=== PATIENT | female | born 1955 | race Caucasian/White ===

== ENCOUNTER 2022-02-04 17:39 | Emergency (ER) | payer OTHER, SELFPAY ==
[2022-02-04] VITALS (18 sets, daily range): BP systolic 91–155; BP diastolic 51–89; PULSE 62–86; RESP 12–26; TEMP 36.4; O2SAT 91–98
--- NOTE | ~2022-02-04 | CT_ITS ---
EXAMINATION: CTA chest PE protocol DATE: 02/04/2022 21:28 INDICATION: SOB, recent cancer diagnosis, +covid TECHNIQUE: Computed tomography angiography (CTA) of the chest was performed with 100 mL Omnipaque-350 intravenous contrast timed to evaluate the pulmonary arteries. Coronal maximum intensity projection 3D-reconstructions were created by the technologist. The dose-length product (DLP) was 377.63 mGy-cm. Automated exposure control and iterative reconstruction technique were employed. COMPARISON: 04/09/2019. X-ray chest, 02/04/2022. FINDINGS: Lung parenchyma and airways: Clear. Calcified granuloma or hamartoma in the superior segment of the l eft lower lobe. Dependent atelectasis/scar. Pleura: Unremarkable. Thoracic inlet, axillae and chest wall: Status post left mastectomy. Thoracic aorta: Normal. Mediastinum: Mild dilation of the central pulmonary arteries as can be seen with pulmonary arterial h ypertension. Heart and pericardium: Mild cardiomegaly. No pericardial effusion. Coronary artery calcifications: Absent. Upper abdomen: No significant finding. Bones: Numerous subacute and chronic right rib fractures. Mild anterior wedge deformity at multiple l evels in the thoracic spine. Innumerable lucent lesions in the spine. Pulmonary arteries: Study quality: Adequate. No pulmonary emboli detected. IMPRESSION: No CT evidence of acute pulmonary embolus. Chronic and incidental findings detailed above. Reviewed, dictated and finalized at location K. IMPRESSION: No CT evidence of acute pulmonary embolus. Chronic and incidental findings deta iled above.
--- NOTE | ~2022-02-04 | XR_ITS ---
EXAMINATION: XR chest 2V Exam Date/Time: 02/04/2022 18:05 CDT HISTORY: COVID with SOB. NO CARDIAC HX. Comparison: 04/09/2019. RESULT: Lines, tubes, and devices: None. Lungs and pleura: Hazy opacities in the right lower lung likely related to rotation and summation ar tifact from soft tissues. Streaky right basilar opacities, commonly attributed to atelectasis. Cardiomediastinal silhouette: Stable. Other: No acute osseous or upper abdominal finding. Status post left mastectomy. IMPRESSION: No acute cardiopulmonary process. Reviewed, dictated and finalized at location K.
--- NOTE | 2022-02-04 17:49 | ECG_ITS ---
Measurements Intervals [place] Rate: 65 P: 60 MT: 168 QRS: -29 QRSD: 86 T: 8 QT: 384 QTc: 402 Interpretive Statements SINUS RHYTHM POSSIBLE LEFT ATRIAL ENLARGEMENT [-0.1mV P WAVE IN V1/V2] POSSIBLE RIGHT VENTRICULAR CONDUCTION DELAY [RSR (QR) IN V1/V2] POSSIBLE ANTERIOR MYOCARDIAL INFARCTION , OF INDETERMINATE AGE [30 ms Q WAVE IN V3/V4, OR R < 0.2 mV IN V4] NONSPECIFIC T-WAVE ABNORMALITY COMPARED TO ECG 04/09/2019 22:07:17 NO SIGNIFICANT CHANGES Electronically Signed On 02-05-2022 9:26:23 CDT by Giovanni Orlando M.D.
[2022-02-04 18:02] LABS: Basophils Percent Auto 0.6 % (0.2-1.2); Eosinophils Absolute Auto 0.1 K/mm3 (0-0.3); Eosinophils Percent Auto 0.9 % (0-4.4); Hematocrit 39.5 % (37.0-47.0); Hemoglobin 12.7 g/dL (12.0-15.0); Immature Granulocyte Absolute 0.05 K/mm3 (0.00-0.031); Immature Granulocyte Percent A 0.9 % (0-0.5); Lymphocytes Absolute Auto 0.88 K/mm3 (0.9-3.2); Lymphocytes Percent Auto 16.5 % (18.3-44.2); Mean Corpuscular HGB Conc 32.2 g/dl (32-36); Mean Corpuscular Volume 96.3 fl (80-100); Mean Platelet Volume 9.4 fl (7.4-10.4); Monocytes Absolute Auto 0.5 K/mm3 (0.1-0.6); Monocytes Percent Auto 8.6 % (2.6-8.5); Neutrophils Absolute Auto 3.9 K/mm3 (1.3-6.7); Neutrophils Percent Auto 72.5 % (45.5-73.1); Platelet Count Result 271 k/mm3 (150-375); Red Cell Distribution Width 13.9 % (11.5-14.5); White Blood Count 5.3 K/mm3 (4.5-10.0)
[2022-02-04 18:17] LABS: Alanine Aminotransferase 21 U/L (6-35); Alkaline Phosphatase 248 U/L (38-126); Anion Gap 11 mmol/L (8-16); Aspartate Amino Transferase 46 U/L (14-36); Bilirubin,Total 0.4 mg/dL (0.2-1.3); Blood Urea Nitrogen 23 mg/dL (7-17); Calcium 9.4 mg/dL (8.4-10.2); Carbon Dioxide 26 mmol/L (22-30); Chloride 105 mmol/L (98-107); Estimated CRCL calculation 57 ml/min; Estimated Glomerular Filt Rate 56; Glucose 121 mg/dL (65-110); Potassium 4.2 mmol/L (3.4-5.0); Sodium 142 mmol/L (137-145)
--- NOTE | 2022-02-04 19:45 | ED.SOB ---
HPI - SOB/Dyspnea General Chief Complaint: Shortness of Breath/Dyspnea Stated Complaint: COVID + 01/26, SOB, metastic cancer Time Seen by Provider: 02/04/22 18:59 History of Present Illness HPI Narrative: Patient is a 66-year-old female with recent diagnosis of metastatic cancer of unknown origin presenting with shortness of breath. Patient states that she tested positive for COVID approximately a week ago. States that she has been recovering at home. She tested herself again yesterday and was still positive. Today, she felt more short of breath even while sitting. States that she was anxious that something more serious was going on. She denies chest pain, lightheadedness, fevers, abdominal pain, nausea or vomiting, diarrhea, leg swelling. Patient states that she is on a lot of new pain medications due to mets in her spine. Related Data Home Medications Medication Instructions Recorded Confirmed folic acid 1 mg tablet 1 mg PO DAILY 03/21/21 10/26/21 levothyroxine 175 mcg capsule 175 mcg PO DAILY 03/21/21 10/26/21 ursodiol 300 mg capsule 300 mg PO TID 03/21/21 10/26/21 methotrexate 2.5 mg/mL oral 5 mg PO WEEKLY 08/01/21 10/26/21 solution Allergies Allergy/AdvReac Type Severity Reaction Status Date / Time No Known Allergies Allergy Verified 10/26/21 07:51 Review of Systems Review of Systems: All systems reviewed & are unremarkable except as noted in HPI and below PMFSH Past Medical History Medical History Anxiety Anxiety and depression BMI 33.0-33.9,adult Chest tightness Depression History of breast cancer History of osteomyelitis Left 3rd toe Hypothyroid Screen for colon cancer Screening for lipid disorders Surgical History Surgical History History of mastectomy No pertinent past surgical history Family History Family History Sibling Family history of hepatitis Family history of malignant neoplasm, Onset Age: 58 Father Family history of lung cancer, Onset Age: 69 Mother Family history of congestive heart failure Social History Social History Smoking status: Never smoker Second hand tobacco smoke exposure: No Alcohol intake: never Substance use: former Substance use type: crack/cocaine Gender identity (if verbalized by the patient): Female Exam Narrative: GENERAL: Well-appearing, well-nourished, and in no acute distress. HEAD: Normocephalic, atraumatic. EYES: PERRLA and EOMI. ENT: Nares clear, no rhinorrhea or epistaxis. Mucous membranes moist. NECK: Supple. CHEST: Clear to auscultation. No respiratory distress. HEART: Regular rate and rhythm. No murmur heard. Normal peripheral pulses. ABDOMEN: Soft, nontender, nondistended, normal active bowel sounds. EXTREMITIES: Normal range of motion. No edema. SKIN: Warm, dry, no rash. NEURO: No focal deficits. Alert and oriented x3. PSYCH: Normal mood and affect. Course Course Emergency Course: Patient is a 66-year-old female presenting with shortness of breath in the setting of COVID infection. Vitals are within normal limits. Patient is nontoxic and in no acute distress. Exam is unremarkable. EKG per my interpretation shows normal sinus rhythm, left axis deviation, no ST elevations or depressions. Blood work is unremarkable. Troponin is undetectable. CTA shows no PE. There is evidence of metastatic disease which patient already knows about. On reevaluation, the patient states that she feels better. Discussed the reassuring work-up. Recommended she follow-up with her PCP and oncologist. Strict return precautions given. Patient discharged in stable condition. Vital Signs Vital signs: Vital Signs Temperature 97.5 F L 02/04/22 17:46 Pulse Rate 73 02/04/22 17:46 Respiratory Rate 18 02/04
[2022-02-04 20:37] LABS: Troponin I < 0.012 ng/mL (0.000-0.034)
== END 2022-02-04 22:42 | disposition home or self-care (01) ==
PROVIDERS: Emergency Medicine; Emergency Provider Emergency Medicine; PCP Family Medicine
DX: U07.1 COVID-19 (principal); R06.02 Shortness of breath; C79.9 Secondary malignant neoplasm of unspecified site; E03.9 Hypothyroidism, unspecified; Z85.3 Personal history of malignant neoplasm of breast; Z90.10 Acquired absence of unspecified breast and nipple; R94.31 Abnormal electrocardiogram [ECG] [EKG]
CPT/HCPCS: 36415; 71046; 71275; 80053; 84484; 85025; 93005; 99284; Q9967

== ENCOUNTER 2023-04-05 16:28 | Emergency (ER) | payer MEDICARE, OTHER, SELFPAY ==
--- NOTE | 2023-04-05 16:42 | ED.ANIMALBIT ---
HPI - Animal Bite General Chief Complaint: Animal Bite Stated Complaint: dog bite r arm Time Seen by Provider: 04/05/23 17:11 Source: patient and RN notes reviewed Mode of arrival: ambulatory Limitations: no limitations History of Present Illness HPI narrative: 67-year-old female presents with concern for dog bite to her right forearm. Reports it was her dog bit her, it is up-to-date on vaccinations. She is currently undergoing chemotherapy. She reports to puncture wounds. MD complaint: animal bite Related Data Home Medications Medication Instructions Recorded Confirmed oxycodone myristate 9 mg capsule 9 mg PO BID 02/15/22 04/05/23 sprinkle extended release 12 hr(DON'T CRUSH) (Xtampza ER) lidocaine-prilocaine 2.5 %-2.5 % 1 g topical ONCE 06/18/22 04/05/23 topical cream ursodiol 300 mg capsule 600 mg PO BID 06/18/22 04/05/23 oxycodone 5 mg tablet 5 mg PO DAILY 04/05/23 04/05/23 zolpidem 5 mg tablet 5 mg PO DAILY 04/05/23 04/05/23 Allergies Allergy/AdvReac Type Severity Reaction Status Date / Time No Known Allergies Allergy Verified 04/05/23 16:45 Review of Systems Review of Systems: CONSTITUTIONAL: Denies malaise, chills, sweats, or fever. EYES: Denies redness, or discharge. ENT: Denies rhinorrhea, congestion, swollen lips, swollen tongue CARDIOVASCULAR: Denies chest pain, palpitations, or edema. RESPIRATORY: Denies cough or dyspnea. GASTROINTESTINAL: Denies abdominal pain, nausea, vomiting SKIN: Reports dog bite to the right forearm MUSCULOSKELETAL: Denies joint pain or myalgia. NEUROLOGIC: Denies headache. All systems reviewed & are unremarkable except as noted in HPI and below PMFSH Past Medical History Medical History (Updated 04/05/23 @ 17:16 by [place] Howard NP) Adult BMI 31.0-31.9 kg/sq m Anemia Anxiety Anxiety and depression BMI (body mass index) 20.0-29.9 BMI 28.0-28.9,adult BMI 33.0-33.9,adult Cancer of left breast, stage 4 Chest tightness Depression History of breast cancer History of osteomyelitis Left 3rd toe Hypothyroid Metastasis to spinal column Overweight with body mass index (BMI) of 28 to 28.9 in adult Port-A-Cath in place Screen for colon cancer Screening for lipid disorders Surgical History Surgical History History of mastectomy No pertinent past surgical history Family History Family History Sibling Family history of hepatitis Family history of malignant neoplasm, Onset Age: 58 Drug overdose Father Family history of lung cancer, Onset Age: 69 Tobacco abuse Mother Family history of congestive heart failure Heart disease Sibling No problems noted. 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 There is no relevant family history pertinent to the presenting complaint Exam Narrative: GENERAL: Well-appearing, well-nourished, and in no acute distress. HEAD: Normocephalic, atraumatic. EYES: PERRLA, conjunctivae clear, and EOMI. ENT: Mucous membranes moist. Oropharynx without edema, erythema or lesions. NECK: S
[2023-04-05 16:48] VITALS: BP 112/68; PULSE 83; RESP 16; TEMP 36.6; O2SAT 98
[2023-04-05 16:51] VITALS: BP 112/68; PULSE 83; RESP 16; TEMP 36.6; O2SAT 98
== END 2023-04-05 17:22 | disposition home or self-care (01) ==
PROVIDERS: Emergency Provider Nurse Practitioner; PCP Family Medicine
DX: S51.831A Puncture wound without foreign body of right forearm, initial encounter (principal); W54.0XXA Bitten by dog, initial encounter; C79.51 Secondary malignant neoplasm of bone; Z85.3 Personal history of malignant neoplasm of breast; Z87.891 Personal history of nicotine dependence; E03.9 Hypothyroidism, unspecified; F41.9 Anxiety disorder, unspecified; F32.A Depression, unspecified
CPT/HCPCS: 99213; G0463

== ENCOUNTER 2023-11-23 09:02 | Emergency (ER) | payer MEDICARE, OTHER, SELFPAY ==
[2023-11-23] VITALS (9 sets, daily range): BP systolic 115–136; BP diastolic 49–76; PULSE 70–78; RESP 12–19; TEMP 36.6–36.7; O2SAT 96–99
--- NOTE | ~2023-11-23 | XR_ITS ---
EXAMINATION: XR chest 2V DATE: 11/23/2023 09:44 INDICATION: Shortness of breath. Metastatic breast cancer. TECHNIQUE: Frontal and lateral views of the chest were obtained. COMPARISON: Chest 2 views 02/04/2022, chest CT 02/04/2022 FINDINGS: There is no pneumonia, pleural effusion, or pneumothorax. The heart size is normal. There a re multiple old right rib fractures. There is a widespread mixed lytic and sclerotic pattern in the s pine. There is mild chronic height loss of multiple vertebral bodies. IMPRESSION: 1. Widespread osseous metastatic disease. Reviewed, dictated and finalized at location A.
--- NOTE | 2023-11-23 09:27 | ECG_ITS ---
Test Date: 2023-11-23 10:07:28 Measurements Intervals [place] Rate: 70 P: 11 CT: 154 QRS: -14 QRSD: 94 T: -1 QT: 405 QTc: 437 Interpretive Statements SINUS RHYTHM POOR R-WAVE PROGRESSION BORDERLINE ECG No previous ECG available for comparison Electronically Signed On 11-24-2023 08:48:05 CDT by Levy High M.D.
--- NOTE | 2023-11-23 09:31 | ED.SOB ---
HPI - SOB/Dyspnea General Chief Complaint: Shortness of Breath/Dyspnea Stated Complaint: SOB Time Seen by Provider: 11/23/23 09:04 History of Present Illness HPI Narrative: Patient is a 68-year-old female who presents ER with reports of shortness of breath. Woke up this morning felt more short of breath than typical. No runny nose or sore throat or productive cough. No fevers chills. No pain with deep breath. No hemoptysis. Has history of metastatic breast cancer to the bones. No urinary symptoms or abdominal symptoms. Feels like she gets a little anxious when she is short of breath. Related Data Home Medications Medication Instructions Recorded Confirmed oxycodone myristate 9 mg capsule 9 mg PO BID 02/15/22 06/05/23 sprinkle extended release 12 hr(DON'T CRUSH) (Xtampza ER) lidocaine-prilocaine 2.5 %-2.5 % 1 g topical ONCE 06/18/22 06/05/23 topical cream ursodiol 300 mg capsule 600 mg PO BID 06/18/22 06/05/23 oxycodone 5 mg tablet 5 mg PO DAILY 04/05/23 06/05/23 zolpidem 5 mg tablet 5 mg PO DAILY 04/05/23 06/05/23 morphine 30 mg tablet,extended 30 mg PO Q12H 06/05/23 06/05/23 release Allergies Allergy/AdvReac Type Severity Reaction Status Date / Time No Known Allergies Allergy Verified 11/23/23 09:02 Review of Systems Review of Systems: All systems reviewed & are unremarkable except as noted in HPI and below Constitutional: Constitutional: Reports no additional constitutional complaints ENT: Reports system reviewed and no additional complaints, except as documented Cardiovascular: Cardiovascular: Reports no additional cardiovascular complaints Respiratory: Respiratory: Denies chest congestion, Denies cough, Reports dyspnea and Denies wheezing Gastrointestinal: Gastrointestinal: Reports no additional gastrointestinal complaints [facility] Past Medical History Medical History Adult BMI 31.0-31.9 kg/sq m Anemia Anxiety Anxiety and depression BMI (body mass index) 20.0-29.9 BMI 28.0-28.9,adult BMI 29.0-29.9,adult BMI 33.0-33.9,adult Cancer of left breast, stage 4 Chest tightness Depression History of breast cancer History of osteomyelitis Left 3rd toe Hypothyroid Metastasis to spinal column Overweight with body mass index (BMI) of 28 to 28.9 in adult Port-A-Cath in place Screen for colon cancer Screening for lipid disorders Surgical History Surgical History History of mastectomy No pertinent past surgical history Family History Family History Sibling Family history of hepatitis Family history of malignant neoplasm, Onset Age: 58 Drug overdose Acute myocardial infarction Father Family history of lung cancer, Onset Age: 69 Tobacco abuse Mother Family history of congestive heart failure Heart disease Sibling Leukemia Heart disease H/O heart bypass surgery Social History Social History Smoking status: Former smoker Second hand tobacco smoke exposure: Yes Alcohol intake: former Substance use: former Substance use type: crack/cocaine Do You Feel Safe in your Home?: Yes Lack of Transportation: No Lack of Food: Never True Current Housing: I Have Housing Concerned About Future Housing: No Difficulty Paying Gas/Electric Bills: No Difficulty Paying for Meds: No Currently Unemployed: No Education: Master's Degree or Higher Difficulty w/ Childcare or Family Care: No Living arrangements: with family 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 HEAD: Normocephalic, atraumatic. ENT: Mucous membrane
[2023-11-23 10:08] LABS: Basophils Percent Auto 0.7 % (0.2-1.2); Eosinophils Absolute Auto 0.2 K/mm3 (0-0.3); Eosinophils Percent Auto 4.2 % (0-4.4); Hematocrit 34.9 % (37.0-47.0); Hemoglobin 10.6 g/dL (12.0-15.0); Immature Granulocyte Absolute 0.01 K/mm3 (0.00-0.031); Immature Granulocyte Percent A 0.2 % (0-0.5); Lymphocytes Absolute Auto 0.58 K/mm3 (0.9-3.2); Lymphocytes Percent Auto 13.5 % (18.3-44.2); Mean Corpuscular HGB Conc 30.4 g/dl (32-36); Mean Corpuscular Hemoglobin 27.2 pg (26-34); Mean Corpuscular Volume 89.5 fl (80-100); Mean Platelet Volume 11.2 fl (7.4-10.4); Monocytes Absolute Auto 0.6 K/mm3 (0.1-0.6); Monocytes Percent Auto 13.5 % (2.6-8.5); Neutrophils Absolute Auto 2.9 K/mm3 (1.3-6.7); Neutrophils Percent Auto 67.9 % (45.5-73.1); Platelet Count Result 84 k/mm3 (150-375); Red Cell Distribution Width 14.8 % (11.5-14.5); White Blood Count 4.3 K/mm3 (4.5-10.0)
[2023-11-23 10:11] LABS: Add Urine Microscopic? YES; Appearance Urine Clear (Clear); Bacteria Urine None Seen /hpf; Bilirubin Urine Negative (Negative); Blood Urine Negative (Negative); Color Urine Dark Yellow (Yellow); Glucose Urine UA Negative (Negative); Ketones Urine Trace mg/dL (Negative); Leukocyte Esterase Ur 1+ LEU/UL (Negative); Nitrate Urine Negative (Negative); Non Pathogenic Casts 0-2; Protein Urine Trace mg/dL (Negative); RBC Urine 0-2 /hpf (0-2); Squamous Epithelial Cell Urine None Seen /hpf (Few); pH Urine 5.5 (5.0-9.0)
[2023-11-23 10:16] LABS: Alanine Aminotransferase 39 U/L (6-35); Albumin Level 3.6 g/dL (3.5-5.1); Alkaline Phosphatase 163 U/L (38-126); Anion Gap 7 mmol/L (4-12); Aspartate Amino Transferase 68 U/L (14-36); Bilirubin,Total 1.1 mg/dL (0.2-1.3); Blood Urea Nitrogen 21 mg/dL (7-17); Calcium 8.9 mg/dL (8.4-10.2); Carbon Dioxide 28 mmol/L (22-30); Chloride 105 mmol/L (98-107); Estimated CRCL calculation 62 ml/min; Estimated Glomerular Filt Rate > 60; Glucose 129 mg/dL (65-110); Potassium 3.5 mmol/L (3.4-5.0); Sodium 140 mmol/L (137-145)
[2023-11-23 10:22] LABS: Ovalocytes 1+; Platelet Estimate Decreased (Adequate); Schistocytes None Seen
[2023-11-23 10:40] LABS: Influenza A QL RT-PCR Negative (Negative); Influenza B QL RT-PCR Negative (Negative); RSV RNA, RT-PCR Negative (Negative); SARS-CoV-2 RNA PCR Negative (Negative)
== END 2023-11-23 12:15 | disposition home or self-care (01) ==
PROVIDERS: Emergency Provider Emergency Medicine; PCP Family Medicine
DX: R06.09 Other forms of dyspnea (principal); C50.919 Malignant neoplasm of unspecified site of unspecified female breast; C79.51 Secondary malignant neoplasm of bone; E03.9 Hypothyroidism, unspecified; D64.9 Anemia, unspecified; Z20.822 Contact with and (suspected) exposure to COVID-19; Z87.891 Personal history of nicotine dependence
CPT/HCPCS: 36415; 71046; 80053; 81001; 85025; 85055; 87086; 87088; 87637; 93005; 99284

== ENCOUNTER 2023-11-24 12:38 | Emergency (ER) | payer MEDICARE, OTHER, SELFPAY ==
--- NOTE | ~2023-11-24 | XR_ITS ---
Clinical Indication: Shortness of breath, history of metastatic breast carcinoma PA and lateral views of the chest: Comparison: 11/23/2023 Findings: Right-sided Mediport unchanged. The lungs are clear, without evidence of focal consolidatio n or pleural effusion. Cardiomediastinal silhouette is within normal limits. Stable compression defo rmities in the thoracic spine, with multiple sclerotic lesions. Impression: Clear lungs. Stable Mediport. Sclerotic metastatic osseous disease with multiple compression deformities in the thoracic spine. The se findings are stable. Reviewed, dictated and finalized at location M. Impression: Clear lungs. Stable Mediport. Sclerotic metastatic osseous disease with multiple compression deformities in t he thoracic spine. These findings are stable.
--- NOTE | ~2023-11-24 | CT_ITS ---
EXAMINATION: CTA chest PE protocol DATE: 11/24/2023 15:57 INDICATION: Dyspnea. Shortness of breath. History of metastatic breast cancer. TECHNIQUE: Computed tomography angiography (CTA) of the chest was performed with 100 mL Omnipaque-350 intravenous contrast timed to evaluate the pulmonary arteries. Coronal maximum intensity projection 3D-reconstructions were created by the technologist. Automated exposure control and iterative reconst ruction technique were employed. Exam dose: 352.00 mGy-cm total exam DLP. COMPARISON: 11/23/2021 PA and lateral chest FINDINGS: There is diagnostic contrast enhancement of the pulmonary arteries and no evidence of pulmo nary embolism. No thoracic aortic aneurysm or dissection. No hilar or mediastinal mass lesion or lymphadenopathy. Right Port-A-Cath catheter is present. Size. No pericardial or pleural effusion. Status post left mastectomy. No pulmonary infiltrate or consolidation or pulmonary mass lesion. Calcified pulmonary granuloma, superior segment, left lower lobe extensive osseous sclerotic metastat ic disease is noted at the spine and ribs. Likely pathologic rib and spine fractures are noted. IMPRESSION: No evidence of pulmonary embolus Status post mastectomy and extensive skeletal metastatic disease, including osseous chronic rib lesio ns with suggestion of some pathologic fractures, burst fracture deformity of T5 multiple presumably p athologic compression fracture deformities of the thoracic and lumbar spine. Reviewed, dictated and finalized at Location A. Reviewed, dictated and finalized at location J. IMPRESSION: No evidence of pulmonary embolus Status post mastectomy and extensive skeletal metastatic disease, including oss eous chronic rib lesions with suggestion of some pathologic fractures, burst fr acture deformity of T5 multiple presumably pathologic compression fracture defo rmities of the thoracic and lumbar spine.
[2023-11-24 12:41] VITALS: BP 128/64; PULSE 91; RESP 18; TEMP 36.4; O2SAT 98
--- NOTE | 2023-11-24 12:45 | ECG_ITS ---
Test Date: 2023-11-24 13:17:18 Measurements Intervals [place] Rate: 77 P: 46 ID: 161 QRS: -9 QRSD: 93 T: 16 QT: 393 QTc: 445 Interpretive Statements SINUS RHYTHM NORMAL ELECTROCARDIOGRAM Compared to ECG 11/23/2023 10:07:28 Poor R-wave progression no longer present Electronically Signed On 11-25-2023 15:25:14 CDT by Levy High M.D.
[2023-11-24 13:26] LABS: Basophils Percent Auto 0.8 % (0.2-1.2); Eosinophils Absolute Auto 0.1 K/mm3 (0-0.3); Eosinophils Percent Auto 1.3 % (0-4.4); Hematocrit 34.1 % (37.0-47.0); Hemoglobin 10.7 g/dL (12.0-15.0); Immature Granulocyte Absolute 0.01 K/mm3 (0.00-0.031); Immature Granulocyte Percent A 0.3 % (0-0.5); Immature Platelet Fraction Pct 3.4 % (0.9-11.2); Lymphocytes Absolute Auto 0.46 K/mm3 (0.9-3.2); Lymphocytes Percent Auto 11.6 % (18.3-44.2); Mean Corpuscular HGB Conc 31.4 g/dl (32-36); Mean Corpuscular Hemoglobin 27.2 pg (26-34); Mean Corpuscular Volume 86.5 fl (80-100); Mean Platelet Volume 10.5 fl (7.4-10.4); Monocytes Absolute Auto 0.5 K/mm3 (0.1-0.6); Monocytes Percent Auto 11.6 % (2.6-8.5); Neutrophils Absolute Auto 2.9 K/mm3 (1.3-6.7); Neutrophils Percent Auto 74.4 % (45.5-73.1); Platelet Count Result 85 k/mm3 (150-375); Red Blood Count 3.94 M/mm3 (4.2-5.4)
[2023-11-24 13:33] LABS: Alanine Aminotransferase 32 U/L (6-35); Albumin Level 3.7 g/dL (3.5-5.1); Alkaline Phosphatase 150 U/L (38-126); Anion Gap 10 mmol/L (4-12); Aspartate Amino Transferase 54 U/L (14-36); Bilirubin,Total 1.4 mg/dL (0.2-1.3); Blood Urea Nitrogen 16 mg/dL (7-17); Calcium 9.5 mg/dL (8.4-10.2); Carbon Dioxide 23 mmol/L (22-30); Chloride 108 mmol/L (98-107); Estimated CRCL calculation 65 ml/min; Estimated Glomerular Filt Rate > 60; Glucose 111 mg/dL (65-110); Potassium 3.4 mmol/L (3.4-5.0); Sodium 141 mmol/L (137-145)
[2023-11-24 14:06] LABS: Ovalocytes 1+; Platelet Estimate Decreased (Adequate); Schistocytes None Seen
--- NOTE | 2023-11-24 14:22 | ED.SOB ---
HPI - SOB/Dyspnea General Chief Complaint: Shortness of Breath/Dyspnea Stated Complaint: trouble breathing Time Seen by Provider: 11/24/23 13:02 History of Present Illness HPI Narrative: 68-year-old female with a history of metastatic breast cancer on chemotherapy presenting with shortness of breath. States that this has actually been going on for several months but nothing has been found wrong. States that it felt worse today so she came in for evaluation. She denies any pain. No chest pain, no abdominal pain. No coughing or fevers. States that she sometimes just feels like she can not catch her breath and then she starts panicking. States that she does feel very anxious during these episodes. No further complaints. Related Data Home Medications Medication Instructions Recorded Confirmed oxycodone myristate 9 mg capsule 9 mg PO BID 02/15/22 11/26/23 sprinkle extended release 12 hr(DON'T CRUSH) (Xtampza ER) lidocaine-prilocaine 2.5 %-2.5 % 1 g topical ONCE 06/18/22 11/26/23 topical cream ursodiol 300 mg capsule 600 mg PO BID 06/18/22 11/26/23 oxycodone 5 mg tablet 5 mg PO DAILY 04/05/23 11/26/23 Allergies Allergy/AdvReac Type Severity Reaction Status Date / Time No Known Allergies Allergy Verified 11/23/23 09:02 Review of Systems Review of Systems: All systems reviewed & are unremarkable except as noted in HPI and below PMFSH Past Medical History Medical History Adult BMI 31.0-31.9 kg/sq m Anemia Anxiety Anxiety and depression BMI (body mass index) 20.0-29.9 BMI 28.0-28.9,adult BMI 29.0-29.9,adult BMI 33.0-33.9,adult Cancer of left breast, stage 4 Chest tightness Depression History of breast cancer History of osteomyelitis Left 3rd toe Hypothyroid Metastasis to spinal column Overweight with body mass index (BMI) of 28 to 28.9 in adult Port-A-Cath in place Screen for colon cancer Screening for lipid disorders Surgical History Surgical History History of mastectomy No pertinent past surgical history Family History Family History Sibling Family history of hepatitis Family history of malignant neoplasm, Onset Age: 58 Drug overdose Acute myocardial infarction Father Family history of lung cancer, Onset Age: 69 Tobacco abuse Mother Family history of congestive heart failure Heart disease Sibling Leukemia Heart disease H/O heart bypass surgery Social History Social History Smoking status: Former smoker Second hand tobacco smoke exposure: Yes Alcohol intake: former Substance use: former Substance use type: crack/cocaine Do You Feel Safe in your Home?: Yes Lack of Transportation: No Lack of Food: Never True Current Housing: I Have Housing Concerned About Future Housing: No Difficulty Paying Gas/Electric Bills: No Difficulty Paying for Meds: No Currently Unemployed: No Education: Master's Degree or Higher Difficulty w/ Childcare or Family Care: No Living arrangements: with family 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 EYES: PERRLA and EOMI. ENT: Mucous membranes moist. NECK: Supple. CHEST: Clear to auscultation. No respiratory distress. HEART: Regular rate and rhythm ABDOMEN: Soft, nontender, nondistended. EXTREMITIES: Normal range of motion. No edema. SKIN: Warm, dry, no rash. NEURO: No focal deficits. Alert and oriented x3. PSYCH: Normal mood and affect. Course Vital Signs Vital signs: Vital Signs Temperature 97.6 F 11/24/23 12:41 Pulse Ra
[2023-11-24 14:30] VITALS: BP 129/66; PULSE 74; RESP 16; TEMP 36.6; O2SAT 95
[2023-11-24 15:27] LABS: Troponin I < 0.012 ng/mL (0.000-0.034)
[2023-11-24 16:32] VITALS: BP 147/88; PULSE 82; RESP 16; TEMP 36.6; O2SAT 98
== END 2023-11-24 19:11 | disposition home or self-care (01) ==
PROVIDERS: Emergency Provider Emergency Medicine; PCP Family Medicine
DX: R06.09 Other forms of dyspnea (principal); F41.9 Anxiety disorder, unspecified; E03.9 Hypothyroidism, unspecified; Z79.891 Long term (current) use of opiate analgesic; Z79.899 Other long term (current) drug therapy; Z87.891 Personal history of nicotine dependence
CPT/HCPCS: 36415; 71046; 71275; 80053; 84484; 85025; 85055; 93005; 99284; Q9967